=== PATIENT | male | born 1990 | race Caucasian/White ===

== ENCOUNTER 2020-02-03 18:48 | Emergency (ER) | payer OTHER ==
[~2020-02-03] VITALS: Ht 167.6 cm; Wt 95.3 kg
--- NOTE | 2020-02-03 18:50 | NUR ---
Patient to ER bed 05 to gown for evaluation. Side rails up.
[2020-02-03 18:51] VITALS: BP_SYST 133
[2020-02-03] MEDS ORDERED: KETOROLAC TROMETHAMINE 60 MG/2 ML VIAL IM ONE (19:00)
--- NOTE | 2020-02-03 19:00 | NUR ---
PT ARRIVES FROM HOME W/ ABD PAIN / AND NAUSEA FOR SMOKING A JOINT. PT DENIES ANY FEVER, CP.
--- NOTE | 2020-02-03 19:02 | NUR ---
MEDICATED THE PT W/ TORADOL PER MD ORDER. WILL REASSESS
--- NOTE | 2020-02-03 19:05 | NUR ---
LAB AT THE [facility]
[2020-02-03 19:07] LABS: BASOPHILS # (AUTO) 0.1 K/uL (0.0-0.2); BASOPHILS % (AUTO) 0.5 % (0.0-2.0); EOSINOPHILS # (AUTO) 0.5 K/uL (0.0-0.4); EOSINOPHILS % (AUTO) 3.9 % (0.0-4.0); HEMATOCRIT 45.7 % (36-54); HEMOGLOBIN 15.4 g/dL (14.0-18.0); LYMPHOCYTES # (AUTO) 4.4 K/uL (1.0-5.5); LYMPHOCYTES % (AUTO) 36.5 % (20.5-51.5); MEAN CORPUSCULAR HEMOGLOBIN 30 pg (27-31); MEAN CORPUSCULAR HGB CONC 34 % (32-36); MEAN CORPUSCULAR VOLUME 88 fL (79.0-98.0); MONOCYTES # (AUTO) 0.7 K/uL (0.0-1.0); MONOCYTES % (AUTO) 5.7 % (1.7-9.3); NEUTROPHILS # (AUTO) 6.5 K/uL (1.8-7.7); NEUTROPHILS % (AUTO) 53.4 % (40.0-70.0); PLATELET COUNT (AUTO) 312 K/uL (130-430); RED BLOOD CELL COUNT(AUTO) 5.19 MIL/uL (4.2-6.2); RED CELL DISTRIBUTION WIDTH 13.1 % (9.0-15.0); WHITE BLOOD COUNT (AUTO) 12.2 K/uL (4.8-10.8)
--- NOTE | 2020-02-03 19:10 | NUR ---
CARE ENDORSED TO JESSICA DURAN
--- NOTE | 2020-02-03 19:22 | NUR ---
Patient came back from CT scan.
[2020-02-03 19:23] LABS: CALCIUM 8.8 mg/dL (8.4-11.0); CREATININE 0.96 mg/dL (0.55-1.30)
[2020-02-03 19:26] LABS: PROTHROMBIN TIME 10.6 SECS (9.5-12.5)
[2020-02-03 19:29] LABS: TOTAL BILIRUBIN 0.4 mg/dL (0.0-1.0)
[2020-02-03 19:30] LABS: ALBUMIN 3.7 g/dL (3.4-4.8)
[2020-02-03 20:17] LABS: BILIRUBIN,URINE NEGATIVE (NEGATIVE); BLOOD, URINE NEGATIVE (NEGATIVE); CLARITY/URINE CLEAR (CLEAR); COLOR,URINE YELLOW (YELLOW); GLUCOSE,URINE NEGATIVE (NEGATIVE); KETONES,URINE NEGATIVE (NEGATIVE); LEUKOCYTE ESTERASE ,URINE NEGATIVE (NEGATIVE); NITRITE, URINE NEGATIVE (NEGATIVE); PROTEIN URINE NEGATIVE (NEGATIVE); UROBILINOGEN,URINE 0.2 (0.2-1.0)
--- NOTE | 2020-02-03 23:10 | NUR ---
# 22 gauge angiocath placed to right hand. Use of asceptic technique. Opsite placed over site. Blood return noted. Blood for lab drawn from site. Flushed with 10 cc of normal saline. No evidence of infiltration noted. Patient tolerated well.
--- NOTE | 2020-02-03 23:14 | NUR ---
ER Dr. Hahn at bedside examining patient.
--- NOTE | 2020-02-04 00:19 | NUR ---
Patient resting quietly. No acute distress noted. Vital signs within normal range.
--- NOTE | 2020-02-04 00:38 | NUR ---
Patient to be transferred to [facility]. Is being transferred due to higher level of care. Receiving facility has accepting physician and available space. ER physician has signed transfer form. Patient or responsible constitution party has agreed to transfer and signed form. Patient belongings inventoried and will be sent with patient. Copy of nursing notes, lab reports, EKG, Physicians Orders and X-rays to be sent with patient. Report called to ROGER Sanchez at receiving facility. Receiving physician is Dr. Malone. [facility] ambulance service has been called for transfer. ETA is 40 minutes.
[2020-02-04 01:01] VITALS: BP_SYST 124
== END 2020-02-04 00:38 | disposition short-term general hospital (02) ==
LOC: SED 18:48
DX: K85.90 Acute pancreatitis without necrosis or infection, unspecified (principal); J45.909 Unspecified asthma, uncomplicated; K76.0 Fatty (change of) liver, not elsewhere classified
CPT/HCPCS: 36415; 74176; 80053; 81003; 82150; 83605; 83615; 83690; 85025; 85610; 85730; 96372; 99285; J1885